=== PATIENT | male | born 1975 | race Caucasian/White ===

== ENCOUNTER 2021-04-13 11:35 | Day surgery (SDC) | payer OTHER ==
[~2021-04-13] VITALS: Ht 160 cm; Wt 60.3 kg
[~2021-04-13 11:35] MED LIST: CEPH500 PO; ERYT1OIN LEFTEYE; HYDACE5 PO
--- NOTE | 2021-04-13 12:08 | NUR ---
04/13/21 1208 CAMILLE RENDON TETRACAINE DROP INSTILLED AT 1200. PLEDGETT INSERTED AT 1201
--- NOTE | 2021-04-13 13:53 | NUR ---
04/13/21 1353 Milly Danielle TRYPAN BLUE USED-VISIONBLUE 0.06%, LOT# [id number], EXP: 07/19
== END 2021-04-13 14:46 | disposition home or self-care (01) ==
LOC: ORSCSDS 11:35
PROVIDERS: Ophthalmology
PROC: 08RJ3JZ Replacement of Right Lens with Synthetic Substitute, Percutaneous Approach (ICD-10-PCS; principal; 2021-04-13 13:00)
DX: H25.11 Age-related nuclear cataract, right eye (principal); H21.81 Floppy iris syndrome
CPT/HCPCS: J2001; J2250; J3010; J3301; J7040; V2632